=== PATIENT | female | born 1930 | race Caucasian/White ===

== ENCOUNTER 2018-06-14 08:48 | Inpatient (IN) | payer OTHER ==
[~2018-06-14] VITALS: Ht 162.6 cm; Wt 74.6 kg
--- NOTE | ~2018-06-14 | EKG ---
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 : 1930 Requested By: Kerri Eastman Order Number: [id number] MD: Charlie Barrios Measurements Intervals [place] Rate: 46 P: -39 NE: 213 QRS: -59 QRSD: 144 T: -15 QT: 596 QTc: 522 Interpretive Statements Sinus bradycardia RBBB and LAFB Left ventricular hypertrophy Compared to ECG 07/25/2017 11:57:40 Left anterior fascicular block now present Right bundle-branch block now present Left ventricular hypertrophy now present Sinus rhythm no longer present First degree AV block no longer present Left bundle-branch block no longer present Electronically Signed On 06-14-2018 16:26:31 CDT by Charlie Barrios [email or web address] <ELECTRONICALLY SIGNED> By: Charlie Barrios MD 06/14/18 1626 1015 1015 Charlie Barrios MD /EPI
[~2018-06-14 08:48] MED LIST: ACYCLOVIR 400400 MG PO; ALLEGRA ALLERGY60 MG PO; ASA5UEC PO; ASPIR 8181 M1 PO; CALCIUM 600 +1 EAC1 PO; CARBAMAZEPINE400 MG PO; CIPRO500 MG PO; DELTA D3400 UNIT PO; DITROPAN XL10 MG PO; GABAPENTIN100 MG PO; LISINOPRIL10 MG PO; MILK OF MA400 MG/5 M PO; NORVASC5 MG PO; OXYBUTYNIN 5 MG5 M2 PO; PEPCID20 MG PO; SPECTRAVITE SE1 EACH PO; TIMOLOL MA0.5 %/5 M2 OPHTHALMIC; ULTRAM 50MG TAB50 MG PO; VITAMIN D31000 UNI2 PO; VITAMIN D400 UNI1 PO; VITAMIN D400 UNI2 PO
[2018-06-14 08:49] VITALS: BP 163/52
[2018-06-14] MEDS ORDERED: TEGRETOL200 MG PO (08:58)
[2018-06-14] MEDS ORDERED: NORVASC2.5 MG PO (08:58)
[2018-06-14 09:20] LABS: ABSOLUTE NEUTROPHILS 13.3 thou/uL (1.4-8.2); BASOPHILS 0.3 % (0.0-2.0); HEMOGLOBIN 12.1 gm/dL (12.0-15.0); LYMPHOCYTES 5.3 % (24.0-44.0); MCH 29.8 pg (26.0-34.0); MCHC 33.7 g/dL (28.0-37.0); MCV 88.5 fL (80.0-100.0); MONOCYTES 7.9 % (1.0-8.0); PLATELET COUNT 184 thou/uL (150-400); POLYS 86.5 % (36.0-66.0); RBC 4.07 mil/uL (4.20-5.00); RDW 13.7 % (10.5-14.5); WBC 15.4 thou/uL (4.0-11.0)
[2018-06-14 09:29] LABS: CALCIUM 9.3 mg/dL (8.5-10.1); POTASSIUM 4.4 mmol/L (3.5-5.1)
[2018-06-14 09:34] LABS: APTT 25.9 Seconds (24.5-32.8); PROTIME 9.8 Seconds (9.3-11.4)
[2018-06-14 11:32] LABS: URINE BLOOD 3+ (Negative); URINE CLARITY CLOUDY; URINE COLOR YELLOW; URINE GLUCOSE-RANDOM* NEGATIVE (Negative); URINE KETONES TRACE (Negative); URINE NITRITE-REFLEX NEGATIVE (Negative); URINE PROTEIN (DIPSTICK) 3+ (Negative); URINE SPECIFIC GRAVITY >= 1.030 (1.005-1.035); URINE UROBILINOGEN 0.2 E.U./dl (0.2-1.0)
[2018-06-14 11:36] LABS: URINE LEUKOCYTES-REFLEX 2+ (Negative)
[2018-06-14 11:38] LABS: ICTOTEST (BILI CONFIRMATORY) Negative (Negative); URINE BILIRUBIN NEGATIVE (Negative)
[2018-06-14 11:49] LABS: CASTS None Seen /LPF (None Seen); CRYSTALS None Seen /LPF (None Seen); SQUAMOUS 0-3 Few /LPF (0-3)
[2018-06-14 11:50] LABS: BACTERIA-REFLEX >30 Many /HPF (None Seen); URINE RBC 3-10 Few /HPF (0-2); URINE WBC-REFLEX >25 Many /HPF (0-5)
[2018-06-14 13:58] VITALS: BP 122/102
[2018-06-14 14:16] VITALS: BP 163/55
[2018-06-14 15:00] VITALS: BP 171/62
[2018-06-14 19:26] VITALS: BP 170/71
[2018-06-14] MEDS ORDERED: CARBATROL200 MG PO (21:45)
[2018-06-15 05:06] VITALS: BP 155/65
[2018-06-15 08:23] VITALS: BP 181/83
[2018-06-15 08:59] LABS: HEMATOCRIT 32.5 % (37.0-47.0); MCH 29.9 pg (26.0-34.0); MCHC 33.8 g/dL (28.0-37.0); MCV 88.4 fL (80.0-100.0); RBC 3.67 mil/uL (4.20-5.00); RDW 14.2 % (10.5-14.5); WBC 11.6 thou/uL (4.0-11.0)
[2018-06-15 09:04] LABS: CALCIUM 8.5 mg/dL (8.5-10.1); CREATININE 1.9 mg/dL (0.6-1.0); POTASSIUM 4.2 mmol/L (3.5-5.1)
[2018-06-15] MEDS ORDERED: CARBAMAZEPINE100 M2 PO ×2 (09:15→09:21)
[2018-06-15] MEDS ORDERED: DIOVAN160 MG PO (09:16)
[2018-06-15] MEDS ORDERED: DITROPAN XL15 MG PO (09:21)
[2018-06-15 15:04] VITALS: BP 169/82
[2018-06-15 19:12] VITALS: BP 148/77
[2018-06-16 07:25] VITALS: BP 163/88
[2018-06-16 08:40] LABS: HEMATOCRIT 31.1 % (37.0-47.0); HEMOGLOBIN 10.5 gm/dL (12.0-15.0); MCH 30.3 pg (26.0-34.0); MCHC 33.8 g/dL (28.0-37.0); MCV 89.6 fL (80.0-100.0); RBC 3.47 mil/uL (4.20-5.00); WBC 8.6 thou/uL (4.0-11.0)
[2018-06-16 08:47] LABS: CALCIUM 8.5 mg/dL (8.5-10.1); CREATININE 1.6 mg/dL (0.6-1.0)
[2018-06-16 17:15] VITALS: BP 158/91
[2018-06-16 19:52] VITALS: BP 188/85
[2018-06-16 21:51] VITALS: BP 175/88
[2018-06-17 04:39] VITALS: BP 165/83
[2018-06-17 08:17] VITALS: BP 179/91
[2018-06-17 19:56] VITALS: BP 139/88
[2018-06-18 07:40] LABS: ABSOLUTE NEUTROPHILS 4.4 thou/uL (1.4-8.2); EOSINOPHILS 6.2 % (0.0-3.0); LYMPHOCYTES 17.1 % (24.0-44.0); MCH 29.8 pg (26.0-34.0); MCHC 33.3 g/dL (28.0-37.0); MCV 89.4 fL (80.0-100.0); MONOCYTES 9.7 % (1.0-8.0); PLATELET COUNT 211 thou/uL (150-400); RBC 3.36 mil/uL (4.20-5.00); WBC 6.6 thou/uL (4.0-11.0)
[2018-06-18 07:46] LABS: CALCIUM 8.8 mg/dL (8.5-10.1); CREATININE 1.4 mg/dL (0.6-1.0); POTASSIUM 4.4 mmol/L (3.5-5.1)
[2018-06-18 08:21] VITALS: BP 153/79
[2018-06-18 14:22] LABS: ALBUMIN 2.4 g/dL (3.4-5.0); DIRECT BILIRUBIN 0.1 mg/dL (<0.1-0.3); TOTAL BILIRUBIN 0.4 mg/dL (<0.1-1.0); TOTAL PROTEIN 5.6 g/dL (6.4-8.2)
[2018-06-18 15:03] LABS: TSH 2.389 uIU/mL (0.358-3.740)
[2018-06-18 16:13] LABS: FOLIC ACID 22.1 ng/mL (8.6-58.9)
[2018-06-18 20:05] VITALS: BP 166/82
[2018-06-19 07:31] LABS: ABSOLUTE NEUTROPHILS 5.1 thou/uL (1.4-8.2); EOSINOPHILS 5.3 % (0.0-3.0); HEMATOCRIT 29.4 % (37.0-47.0); HEMOGLOBIN 9.8 gm/dL (12.0-15.0); LYMPHOCYTES 14.7 % (24.0-44.0); MCH 29.7 pg (26.0-34.0); MCHC 33.4 g/dL (28.0-37.0); MCV 89.2 fL (80.0-100.0); MONOCYTES 9.1 % (1.0-8.0); PLATELET COUNT 211 thou/uL (150-400); POLYS 69.9 % (36.0-66.0); RDW 13.9 % (10.5-14.5); WBC 7.2 thou/uL (4.0-11.0)
[2018-06-19 07:44] LABS: CALCIUM 8.7 mg/dL (8.5-10.1); CREATININE 1.6 mg/dL (0.6-1.0); POTASSIUM 4.4 mmol/L (3.5-5.1)
[2018-06-19 07:45] VITALS: BP 183/87
[2018-06-19] MEDS ORDERED: LEVAQUIN 500 M500 M2 PO (07:53)
[2018-06-19] MEDS ORDERED: MIRALAX17 GM PO (07:54)
[2018-06-19 09:34] VITALS: BP 183/87
== END 2018-06-19 14:45 | DRG 871 ==
LOC: ER 08:48 → EROBS 12:40 → 4W 12:40 → SICU 06-16 17:01
PROVIDERS: Family Medicine; Hospitalist; Student in an Organized Health Care Education/Training Program
DX: A41.9 Sepsis, unspecified organism (principal); J18.9 Pneumonia, unspecified organism; N17.9 Acute kidney failure, unspecified; N39.0 Urinary tract infection, site not specified; J98.11 Atelectasis; I10 Essential (primary) hypertension; Z60.2 Problems related to living alone; G50.0 Trigeminal neuralgia; Z88.1 Allergy status to other antibiotic agents; Z88.2 Allergy status to sulfonamides; Z90.49 Acquired absence of other specified parts of digestive tract; Z79.82 Long term (current) use of aspirin; Z79.899 Other long term (current) drug therapy
CPT/HCPCS: 10045; 15002

== ENCOUNTER 2018-07-22 21:20 | Inpatient (IN) | payer OTHER ==
[~2018-07-22] VITALS: Ht 162.6 cm; Wt 73.4 kg
--- NOTE | ~2018-07-22 | EKG ---
[place] [address] [facility] [place] [address] ELECTROCARDIOGRAM REPORT Name: CHARLES DEL CASTILLO Room #: 201-P ADM IN M.R.#: [id number] Admission: 07/23/18 Attend Phys: Toshia Manrique Discharge: Date of : 32 Report #: [id number] THIS REPORT FOR: //name// 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 : 1930 Requested By: Simon Oshea Order Number: [id number] MD: Gerard Reilly Measurements Intervals [place] Rate: 88 P: 4 CA: 215 QRS: -63 QRSD: 145 T: 38 QT: 410 QTc: 496 Interpretive Statements Sinus rhythm Borderline prolonged CA interval RBBB and LAFB Left ventricular hypertrophy Baseline wander in lead(s) V2 Compared to ECG 06/14/2018 10:15:04 Sinus bradycardia no longer present Electronically Signed On 07-23-2018 10:23:06 O AND M SUPERVISOR by Gerard Reilly [email or web address] <ELECTRONICALLY SIGNED> By: Gerard Reilly MD 07/23/18 1023 19 19 Gerard Reilly MD /TENZIN
--- NOTE | ~2018-07-22 | 2DMMODE ---
[facility] [address] [place] [address] 2 D/M-MODE ECHOCARDIOGRAM Name: ABUNDIOCHARLES ANNA Room #: 201-P ADM IN M.R.#: [id number] Admission: 07/23/18 Attend Phys: Bro Mullins, Discharge: Date of : 32 Date of Service: 07/24/18 1021 Report #: [id number] THIS REPORT FOR: //name// APPROVED REPORT Study performed: 07/24/2018 08:21:36 EXAM: Comprehensive 2D, Doppler, and color-flow Echocardiogram Patient Location: Echo lab Room #: 201 Status: routine BSA: 1.76 HR: 96 bpm BP: 196/112 mmHg Rhythm: NSR Other Information Study Quality: Good Indications Short of breath, elevated troponin. LV function, CHF. Hx: HTN 2D Dimensions RVDd: 38.69 mm IVSd: 14.12 (7-11mm) LVOT Diam: 20.79 (18-24mm) LVDd: 51.36 mm PWd: 12.02 (7-11mm) LVDs: 41.38 (25-40mm) Aortic Root: 32.20 mm Volumes Left Atrial Volume (Systole) Single Plane 4CH: 65.42 mL Single Plane 2CH: 81.99 mL LA ESV Index: 46.00 mL/m2 Aortic Valve AoV Peak Milton.: 1.43 m/s AO Peak Gr.: 8.22 mmHg LVOT Max P.88 mmHg LVOT Max V: 0.98 m/s DEMETRICE Vmax: 2.33 cm2 Mitral Valve E/A Ratio: 2.0 MV Decel. Time: 105.73 ms MV E Max Milton.: 1.12 m/s [facility] [place] [address] [place] [address] 2 D/M-MODE ECHOCARDIOGRAM Name: CHARLES DEL CASTILLO Room #: 201-P [facility] ..#: [id number] Admission: 07/23/18 Attend Phys: Bro Mullins, Discharge: Date of : 32 Date of Service: 07/24/18 1021 Report #: [id number] MV A Milton.: 0.56 m/s MV PHT: 30.66 ms IVRT: 66.90 ms Pulmonary Valve PV Peak Milton.: 0.88 m/s PV Peak Gr.: 3.07 mmHg Pulmonary Vein P Vein S: 0.48 m/s P Vein D: 0.55 m/s P Vein S/D Ratio: 0.87 Tricuspid Valve TR Peak Milton.: 2.95 m/s RAP Estimate: 5.00 mmHg TR Peak Gr.: 34.86 mmHg PA Pressure: 40.00 mmHg Left Ventricle The left ventricle is normal size. Mild global hypokinesis with more pronounced hypokinesis of the inferior segment. Mild concentric left ventricular hypertrophy. Left ventricular systolic function is mild to moderately decreased. LVEF is 40-45%. Right Ventricle The right ventricle is normal size. Right ventricle is mildly hypokinetic. Atria Left atrium is moderately dilated. The right atrium size is normal. Aortic Valve The aortic valve is normal in structure. Trace aortic regurgitation. There is no aortic valvular stenosis. Mitral Valve Mitral valve leaflets are mildly thickened. Moderate mitral regurgitation. Tricuspid Valve The tricuspid valve is normal in structure. Mild tricuspid regurgitation. Estimated PAP is 40mmHg. Pulmonic Valve The pulmonary valve is normal in structure. Trace pulmonic regurgitation. [facility] [address] [place] [address] 2 D/M-MODE ECHOCARDIOGRAM Name: CHARLES DEL CASTILLO JOSUE Room #: 201-P [facility] IN M.R.#: [id number] Admission: 07/23/18 Attend Phys: Bro Mullins, Discharge: Date of : 32 Date of Service: 07/24/18 1021 Report #: [id number] Great Vessels The aortic root is normal in size. Ascending aorta is not well visualized. IVC is normal in size and collapses >50% with inspiration. Pericardium There is no pericardial effusion. Left and right pleural effusions noted. <Conclusion> The left ventricle is normal size. Mild concentric left ventricular hypertrophy. Left ventricular systolic function is mild to moderately decreased. Mild global hypokinesis with more pronounced hypokinesis of the inferior segment. Right ventricle is mildly hypokinetic. Left atrium is moderately dilated. Trace aortic regurgitation. Moderate mitral regurgitation. Mild tricuspid regurgitation. Estimated PAP is 40mmHg. There is no pericardial effusion. Left and right pleural effusions noted. <ELECTRONICALLY SIGNED> By: Gerard Reilly MD 07/24/18 1021 1021 1021 Gerrad Reilly MD /INF
--- NOTE | ~2018-07-22 | HC ---
[facility] [place] [address] [place] [address] CONSULTATION Name: ABUNDIOCHARLES JOSUE Room #: 201-P ADM IN M.R.#: [id number] Admission: 07/23/18 Attend Phys: Toshia Manrique Discharge: Date of : 32 Report #: [id number] THIS REPORT FOR: //name// CC: Toshia Crabtree Harpreet DATE OF SERVICE: 07/23/2018 INDICATION: Dyspnea. HISTORY OF PRESENT ILLNESS: This is an 88-year-old female who presents with weakness, cough and dyspnea. She had been in rehab for several weeks and discharged towards the end of May. She had been in the hospital for a UTI and pneumonia. She lives at home by herself. She reports feeling generalized weakness and nauseous yesterday. Last evening, she was unable to get out of bed, had a fall to the floor. She reports increasing cough and dyspnea when she lies down. There is no history of chest pains, fever, chills or diarrhea. PAST MEDICAL HISTORY: History of hypertension, FMD, weakness and syncope. Recent episode of pneumonia. ALLERGIES: INCLUDE AMOXICILLIN AND SULFA. MEDICATIONS: Include gabapentin at night, aspirin once a day, carbamazepine 40 mg daily, Diovan 160 mg daily, amlodipine 10 mg daily and famotidine. SOCIAL HISTORY: Negative for tobacco use. FAMILY HISTORY: Negative for premature CAD. REVIEW OF SYSTEMS: A full 10-point review of systems performed. Only the pertinent positives and negatives are described in the HPI. PHYSICAL EXAMINATION: VITAL SIGNS: Blood pressure 150/90, heart rate is 64 beats per minute. GENERAL APPEARANCE: An elderly appearing female, in no acute distress. HEENT: Normocephalic, atraumatic. Oral mucosa moist. NECK: Supple. LUNGS: Diminished breath sounds at the bases. CARDIAC: Regular rate and rhythm, S1, S2 positive. ABDOMEN: Soft, nontender. EXTREMITIES: No cyanosis. Positive edema. ECG reveals sinus rhythm, right bundle branch block, left anterior hemiblock, nonspecific ST segment abnormality. [facility] [address] [place] [address] CONSULTATION Name: CHARLES DEL CASTILLO Room #: [address] [place] [address] IN .R.#: [id number] Admission: 07/23/18 Attend Phys: Toshia Manrique Discharge: Date of : 32 Report #: [id number] LABORATORY VALUES: Peak troponin 0.17. White count 11.6, hemoglobin is 11.3. Creatinine is 1.6. ProBNP is 47,101. ASSESSMENT AND PLAN: 1. Shortness of breath/cough, may be suggestive for congestive heart failure. Chest x-ray reveals bilateral infiltrates. We will proceed with gentle diuresis at this time. She is not in any overt heart failure. Will need an echo to evaluate the LV systolic function. 2. Troponin elevation, in the indeterminate range. She offers no complaints of angina. The ECG is abnormal and the plan is to proceed with noninvasive stress testing. 3. Hypertension, continue with amlodipine. 4. Weakness/general debility, appears to be stable at this time. Will need physical therapy. <ELECTRONICALLY SIGNED> By: Gerard Reilly MD 07/23/18 1518 1048 1325 Gerard Reilly MD /nt
[~2018-07-22 21:20] MED LIST changes: +CARBAMAZEPINE100 M2 PO; +CARBATROL200 MG PO; +DIOVAN160 MG PO; +DITROPAN XL15 MG PO; +LEVAQUIN 500 M500 M2 PO; +MIRALAX17 GM PO; +NORVASC2.5 MG PO; +TEGRETOL200 MG PO
[2018-07-22 21:25] VITALS: BP 184/101
[2018-07-22 22:33] LABS: ABSOLUTE NEUTROPHILS 10.5 thou/uL (1.4-8.2); BASOPHILS 0.6 % (0.0-2.0); EOSINOPHILS 0.1 % (0.0-3.0); HEMATOCRIT 34.4 % (37.0-47.0); HEMOGLOBIN 11.3 gm/dL (12.0-15.0); LYMPHOCYTES 4.3 % (24.0-44.0); MCH 29.2 pg (26.0-34.0); MCV 88.5 fL (80.0-100.0); MONOCYTES 4.5 % (1.0-8.0); PLATELET COUNT 180 thou/uL (150-400); POLYS 90.5 % (36.0-66.0); RBC 3.89 mil/uL (4.20-5.00); RDW 14.6 % (10.5-14.5); WBC 11.6 thou/uL (4.0-11.0)
[2018-07-22 22:36] LABS: CALCIUM 8.9 mg/dL (8.5-10.1); CREATININE 1.6 mg/dL (0.6-1.0)
[2018-07-22 22:45] LABS: TROPONIN-I 0.15 ng/mL (<0.06)
[2018-07-22] MEDS ORDERED: NORVASC10 MG PO (22:46)
[2018-07-22] MEDS ORDERED: PEPCID20 MG PO (22:48)
[2018-07-23] VITALS (8 sets, daily range): BP systolic 132–175; BP diastolic 67–98
[2018-07-23] MEDS ORDERED: LASIX 40 MG TAB40 M2 PO (00:17)
[2018-07-23 04:02] LABS: CHOLESTEROL 182 mg/dL (<200); HDL CHOLESTEROL 91 mg/dL (>40); LDL CHOLESTEROL 79 mg/dL (<100); TRIGLYCERIDE 62 mg/dL (<150); VLDL 12 mg/dL (<40)
[2018-07-23 04:08] LABS: SERUM ASSESSMENT Slight Lipemia
[2018-07-24 03:25] VITALS: BP 175/99
[2018-07-24 03:39] VITALS: BP 150/88
[2018-07-24 04:06] LABS: URINE BILIRUBIN NEGATIVE (Negative); URINE BLOOD 2+ (Negative); URINE CLARITY CLEAR; URINE COLOR YELLOW; URINE GLUCOSE-RANDOM* NEGATIVE (Negative); URINE KETONES NEGATIVE (Negative); URINE NITRITE-REFLEX NEGATIVE (Negative); URINE PROTEIN (DIPSTICK) 1+ (Negative); URINE UROBILINOGEN 0.2 E.U./dl (0.2-1.0)
[2018-07-24 04:07] LABS: URINE LEUKOCYTES-REFLEX TRACE (Negative)
[2018-07-24 04:14] LABS: HEMATOCRIT 33.2 % (37.0-47.0); HEMOGLOBIN 10.9 gm/dL (12.0-15.0); MCH 29.1 pg (26.0-34.0); MCHC 32.9 g/dL (28.0-37.0); MCV 88.6 fL (80.0-100.0); RBC 3.75 mil/uL (4.20-5.00); RDW 14.8 % (10.5-14.5)
[2018-07-24 04:27] LABS: BACTERIA-REFLEX 1-9 Few /HPF (None Seen); CASTS None Seen /LPF (None Seen); CRYSTALS None Seen /LPF (None Seen); MUCUS None Seen strn/LPF (None Seen); SQUAMOUS None Seen /LPF (0-3); URINE RBC 0-2 Rare /HPF (0-2); URINE WBC-REFLEX 0-5 Rare /HPF (0-5)
[2018-07-24 04:28] LABS: TRANSITIONAL EPITHEL CELL 0-3 Few /LPF (None Seen)
[2018-07-24 04:30] LABS: CALCIUM 8.9 mg/dL (8.5-10.1); MAGNESIUM 2.3 mg/dL (1.8-2.4); POTASSIUM 3.9 mmol/L (3.5-5.1)
[2018-07-24 07:32] VITALS: BP 196/112
[2018-07-24 11:34] VITALS: BP 150/79
[2018-07-24 15:20] VITALS: BP 150/66
[2018-07-24 19:36] VITALS: BP 133/75
[2018-07-25 04:03] LABS: HEMATOCRIT 29.4 % (37.0-47.0); MCH 30.3 pg (26.0-34.0); MCV 89.2 fL (80.0-100.0); RBC 3.3 mil/uL (4.20-5.00); RDW 15.1 % (10.5-14.5); WBC 6.5 thou/uL (4.0-11.0)
[2018-07-25 04:04] LABS: CALCIUM 8.5 mg/dL (8.5-10.1); CREATININE 2.2 mg/dL (0.6-1.0)
[2018-07-25 04:24] VITALS: BP 136/82
[2018-07-25 08:52] VITALS: BP 158/100
[2018-07-25 11:05] VITALS: BP 140/79
[2018-07-25] MEDS ORDERED: COREG6.25 MG PO (14:38)
[2018-07-25 15:10] VITALS: BP 125/71
[2018-07-25 19:09] VITALS: BP 118/56
[2018-07-26 05:40] VITALS: BP 129/73
[2018-07-26 05:52] VITALS: BP 152/85
[2018-07-26 07:29] VITALS: BP 173/87
[2018-07-26 07:46] VITALS: BP 173/87
== END 2018-07-26 10:27 | DRG 682 ==
LOC: ER 21:20 → 2N 07-23 00:41 → EROBS 07-23 00:41 → 2N 07-23 01:36
PROVIDERS: Emergency Medicine; Internal Medicine; Nurse Practitioner Acute Care
DX: N17.9 Acute kidney failure, unspecified (principal); I50.33 Acute on chronic diastolic (congestive) heart failure; I13.0 Hypertensive heart and chronic kidney disease with heart failure and stage 1 through stage 4 chronic kidney disease, or unspecified chronic kidney disease; I42.9 Cardiomyopathy, unspecified; M19.90 Unspecified osteoarthritis, unspecified site; W01.0XXA Fall on same level from slipping, tripping and stumbling without subsequent striking against object, initial encounter; N18.3 Chronic kidney disease, stage 3 (moderate); M79.7 Fibromyalgia; Z79.82 Long term (current) use of aspirin; Z79.899 Other long term (current) drug therapy; Z88.2 Allergy status to sulfonamides; Z88.0 Allergy status to penicillin; Z90.49 Acquired absence of other specified parts of digestive tract; Y93.89 Activity, other specified; Y92.89 Other specified places as the place of occurrence of the external cause; Y99.8 Other external cause status
CPT/HCPCS: 10081

== ENCOUNTER 2018-07-25 16:14 | Inpatient (IN) | payer OTHER ==
[~2018-07-25] VITALS: Ht 162.6 cm; Wt 68.5 kg
--- NOTE | ~2018-07-25 | PLAN ---
[facility] [place] [address] [place] [address] REHAB UNIT PLAN OF CARE Name: CHARLES DEL CASTILLO Room #: 505-P ADM IN M.R.#: [id number] Admission: 07/26/18 Attend Phys: Jonathan Cordova MD Discharge: Date of : 32 Report #: [id number] THIS REPORT FOR: //name// CC: Jonathan Mullins DATE OF SERVICE: 07/28/2018 The patient is seen back today in followup. She is in no distress. Temperature 98.3, pulse 62, respirations 18, blood pressure 113/57. She is alert. No focal calf swelling. She is on 2 liters nasal prong O2. Transfers are mod assist. Bed mobility is max assist, lower body dressing is dependent. She has moderate comprehensive deficits. ASSESSMENT: 1. Acute exacerbation of diastolic congestive heart failure. 2. Medical complexity with generalized debilitation. 3. Nonischemic cardiomyopathy. 4. Troponin elevation of indeterminate range. 5. Acute renal insufficiency with exacerbation of diuresis. 6. Hypertension. 7. Possible pneumonia, resolved. 8. Degenerative arthritis. 9. Recent fall at home prior to admission. PLAN: The overall plan of care is based on the preadmission screen, post-admission physician evaluation and information garnered from therapy assessments. 1. Estimated length of stay is going to be probably at least 10 days pending progress. Possibly 2 weeks. We will need to see how she does. 2. Medical prognosis is reasonably good. 3. Anticipated interventions includes the interdisciplinary acute inpatient rehabilitation program with PT, OT, speech rehab nursing assisting regarding medication management, skin care prophylaxis, bowel and bladder issues and nursing education. Case management is involved as well as the interdisciplinary acute inpatient rehabilitation team. 4. Anticipated functional outcomes would be for the patient to become modified independent with transfers, mobility, ADLs as well as overall cognition, so that she can return back to the home setting. She premorbidly utilized a single point cane, although will need to see how she does here in rehabilitation. 5. Discharge destination would be back to her own home. Her children live out of town. 6. Expected therapy by discipline includes PT, OT and speech 1 hour per day [address] [address] REHAB UNIT PLAN OF CARE Name: CHARLES DEL CASTILLO Room #: 505-P ADM IN ..#: [id number] Admission: 07/26/18 Attend Phys: Jonathan Cordova MD Discharge: Date of : 32 Report #: [id number] each five days a week throughout the duration of the acute inpatient rehabilitation stay. By: 0821 1122 Jonathan Cordova MD /ALONDRA
--- NOTE | ~2018-07-25 | EKG ---
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 : 1930 Requested By: Bro Mullins Order Number: [id number] MD: Bassem Negro Measurements Intervals [place] Rate: 82 P: -8 MA: 228 QRS: -56 QRSD: 157 T: 58 QT: 405 QTc: 473 Interpretive Statements Sinus rhythm Prolonged MA interval Left anterior hemiblock Right bundle-branch block Compared to ECG 07/22/2018 22:20:03 no significant change was found Electronically Signed On 07-31-2018 8:36:22 MANAGER STRATEGY by Bassem Negro [email or web address] <ELECTRONICALLY SIGNED> By: Bassem Negro MD, [facility] 07/31/18 0836 0736 0736 Bassem Negro MD, [facility] /EPI
--- NOTE | ~2018-07-25 | H ---
[facility] [place] [address] [place] [address] HISTORY AND PHYSICAL Name: CHARLES DEL CASTILLO Room #: 505-P [facility] IN M.R.#: [id number] Admission: 07/26/18 Attend Phys: Jonathan Cordova MD Discharge: 07/31/18 Date of : 32 Report #: [id number] THIS REPORT FOR: //name// CC: Jonathan Cookkalyn Mullins DATE OF SERVICE: 07/26/2018 HISTORY AND PHYSICAL/POSTADMISSION PHYSICIAN EVALUATION HISTORY OF PRESENT ILLNESS: The patient is an 88-year-old white female who was originally admitted to [facility] on 07/23/2018 after sliding out of her bed, feeling overall sick and weak. She was diagnosed with an acute exacerbation of diastolic congestive heart failure and possible pneumonia. She was initially given IV antibiotics, which were subsequently stopped as well as IV diuretics. Lasix was placed on hold due to worsening renal function. Cardiology was involved and the patient did undergo a cardiac stress test. She is noted to have cardiomyopathy, nonischemic with the nuclear stress test, nonischemic. She did have a troponin elevation in indeterminate range. She is being monitored regarding her acute renal insufficiency. She does have hypertension and her Coreg was increased. She was noted to have the acute exacerbation of diastolic congestive heart failure and has medical complexity with generalized debilitation and has now been admitted for acute in-hospital inpatient rehabilitation. PAST MEDICAL HISTORY: Includes hypertension, fibromyalgia, varicose vein surgery, bilateral lower extremities, appendectomy, and chronic kidney disease stage 3. MEDICATIONS: Please see the full medication listing. This includes vitamins, herbals, and supplements. ALLERGIES: AMOXICILLIN AND SULFA. HABITS: No history of alcohol or drug abuse, nonsmoker. SOCIAL HISTORY: Lives alone, house single story basement and laundry one flight of steps with a single handrail, utilized a single point cane, has children that are out of town. There is currently a son visiting from [place], [place]. REVIEW OF SYSTEMS: Did not offer any current complaints of chest pain, shortness of breath or abdominal discomfort. No focal complaints of extremity pain. Does complain of generalized weakness. PHYSICAL EXAMINATION: GENERAL: An 88-year-old white female in no obvious distress. [facility] [address] [place] [address] HISTORY AND PHYSICAL Name: CHARLES DEL CASTILLO Room #: 505-P [facility] IN .R.#: [id number] Admission: 07/26/18 Attend Phys: Jonathan Cordova MD Discharge: 07/31/18 Date of : 32 Report #: [id number] VITAL SIGNS: Last recorded temperature 98.9, pulse 71, respirations 18, blood pressure 137/76. The patient is alert. She is pleasant. HEENT: Appeared to be benign. NEUROLOGIC: Cranial nerves are grossly intact. Tends to defer lot of answers to her son. She is on nasal prong O2, currently on 2 liters. Some delay in her responses, but appears appropriate. She was somewhat tired and tended to drift off to sleep. Facies were symmetric. CHEST: Some decreased breath sounds diffusely. CARDIOVASCULAR: Sounded regular rate and rhythm. ABDOMEN: Bowel sounds positive, nontender. GENITOURINARY AND RECTAL: Deferred. EXTREMITIES: She has functional range of motion of both upper extremities. Strength is grade 3+ to 4-/5. DTRs are trace to 1. Lower extremities, no focal calf swelling, functional range of motion, strength is grade 3+ to 4-/5. DTRs are trace to 1. Tone appeared to be intact. Functionally, she is needing assistance with transfers at more of a mod assist and short distance ambulation mod assist. ASSESSMENT: An 88-year-old white female with the following problem list: 1. Acute exacerbation of diastolic congestive heart failure. 2. Medical complexity with generalized debilitation. 3. Nonischemic cardiomyopathy. 4. Troponin elevation in an indeterminate range. 5. Acute renal insufficiency with exacerbation with diuresis. 6. Hypertension. 7. Possible pneumonia, resolved. 8. Degenerative arthritis. 9. Recent fall at home prior to admission. PLAN: The patient is admitted for acute in-hospital inpatient rehabilitation. From a post-admission physician evaluation, there are no relevant changes since the preadmission screening. Please see the above review of prior and current medical and functional conditions and comorbidities. Please see the patient's previous and current functional status. As far as risk of complications, the patient has multiple medical comorbidities as noted above. The initial plan of care involves the interdisciplinary acute inpatient rehabilitation program with the goal of maximizing the patient's functional independence, so that she can hopefully return back to her prior living situation. Prognosis is reasonably good with estimated length of stay probably 10 days to 2 weeks pending progress. Potential barriers would include her multiple medical comorbidities and decreased functional status. The patient meets diagnostic criteria for an acute in-hospital inpatient rehabilitation stay. She meets the medical necessity criteria and we will have [facility] [address] [place] [address] HISTORY AND PHYSICAL Name: CHARLES DEL CASTILLO Room #: 505-P DIS IN M.R.#: [id number] Admission: 07/26/18 Attend Phys: Jonathan Cordova MD Discharge: 07/31/18 Date of : 32 Report #: [id number] the [employer] consultant physicians continue to follow up. She does have the tolerance for therapies and has appropriate discharge goals back to the home setting. <ELECTRONICALLY SIGNED> By: Jonathan Cordova MD 08/01/18 1121 1202 1230 Jonathan Cordova MD /nt
--- NOTE | ~2018-07-25 | D ---
[facility] [place] [address] [place] [address] DISCHARGE SUMMARY Name: CHARLES DEL CASTILLO Room #: 505-P [facility] IN M.R.#: [id number] Admission: 07/26/18 Attend Phys: Jonathan Cordova MD Discharge: 07/31/18 Date of : 32 Report #: [id number] THIS REPORT FOR: //name// CC: Jonathan Cordova Bro Mullins DATE OF SERVICE: 07/31/2018 HISTORY: This is an 88-year-old female originally admitted to the inpatient rehabilitation pham after being diagnosed with an acute exacerbation of diastolic congestive heart failure and possibly pneumonia. She was initially given IV antibiotics. They were subsequently stopped as well as IV diuretics. Lasix was put on hold due to worsening renal function. Cardiology was involved. She was noted to have a cardiomyopathy, nonischemic. She did have a troponin elevation in the indeterminate range. She was being monitored regarding her acute renal insufficiency and was noted to have hypertension and her Coreg was increased. She was noted to have medical complex with generalized debilitation and was admitted for acute in-hospital inpatient rehabilitation. Please see the full admission note dictation from 07/26/2018. HOSPITAL COURSE: The patient was involved in the inpatient rehabilitation program. She was monitored regarding her medical issues. She was progressing in therapies. She was mod assist on 07/29/2018 for basic transfers. She did miss some therapies on Tuesday07/29/2018 secondary to somnolence. She did better on 07/30/2018 and was min assist with transfers. Gait was 25 feet front-wheeled walker. In occupational therapy, lower body dressing was dependent, upper body dressing was dependent. She was noted to have moderate comprehensive deficits. Earlier this morning, on 07/31/2018, she had complaints of not feeling well, O2 sat was in the 80s and 2 liters. ABGs withdrawn. These were noted to be critical. PO2 47.7, O2 sat 83.7. She is being transferred down to the [facility] CCU for more close monitoring. DISCHARGE DIAGNOSES: 1. Acute exacerbation of diastolic congestive heart failure. 2. Medical complexity with generalized debilitation. 3. Nonischemic cardiomyopathy. 4. Troponin elevation in the indeterminate range. 5. Acute renal insufficiency with exacerbation of diuresis. 6. Hypertension. 7. Possible pneumonia. 8. Degenerative arthritis. PLAN: The patient is being discharged off the acute inpatient rehab pham and will be returning back to the acute hospital to CCU for further medical [address] [address] DISCHARGE SUMMARY Name: CHARLES DEL CASTILLO Room #: 505-P [facility] IN M.R.#: [id number] Admission: 07/26/18 Attend Phys: Jonathan Cordova MD Discharge: 07/31/18 Date of : 32 Report #: [id number] management. I will defer medications, diet, activity level, etc., all as per the accepting service. By: 0823 0833 Jonathan Cordova MD /cory
--- NOTE | ~2018-07-25 | HC ---
[facility] [address] [place] [address] CONSULTATION Name: CHARLES DEL CASTILLO Room #: 505-P ADM IN M.R.#: [id number] Admission: 07/26/18 Attend Phys: Jonathan Cordova MD Discharge: Date of : 34 Report #: [id number] THIS REPORT FOR: //name// CC: Jonathan Mullins DATE OF SERVICE: 07/30/2018 NEUROBEHAVIORAL STATUS EXAM: ATTENDING PHYSICIAN: Jonathan Cordova MD. PEACH GROWER: Bro Gutierrez, PhD. CLINICAL PRESENTATION: The patient is an 88-year-old female admitted to the rehabilitation unit at [facility] for comprehensive inpatient rehabilitation program to improve functional mobility, activities of daily living and self-care and mental status secondary to deficits from an acute exacerbation of diastolic congestive heart failure, medical complexity and generalized debility, non-ischemic cardiomyopathy, troponin elevation in an intermediate range, acute renal insufficiency with exacerbation with diuresis, hypertension, possible pneumonia, degenerative arthritis and a recent fall. A complete description of her medical condition and history can be found in her medical record. Neuropsychological consultation was requested to provide assistance in the assessment of cognitive and emotional status and to provide recommendations and services. Prior to this most recent admission, she was living independently in her own home. She has had assistance from a peer to help her with nutrition and driving. The patient has not driven for 6 years. She has been unable to cook. Her daughter describes her as having had 3 falls. An initial fall about 4-5 years ago in which she was lying on the floor for approximately 24 hours. A fall in May of this year, she was about 7-12 hours before help was required. Most recently, she had a fall that led to this current hospitalization, which she used her Life Alert to contact the daughter for requiring additional help. There has been a continual deterioration in her functioning. The patient is a high school graduate. She is . Her ex- is . She has three children. 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 She is originally from [place], but has been in the [place] for about 60 years. Her children are all living out of town. TECHNIQUES UTILIZED: Clinical interview, review of medical records, staff consultation and behavioral observation, mini mental status exam [address] [address] CONSULTATION Name: CHARLES DEL CASTILLO Room #: 505-P [facility] IN M.R.#: [id number] Admission: 07/26/18 Attend Phys: Jonathan Cordova MD Discharge: Date of : 32 Report #: [id number] version and clock drawing. Family interview - daughter. EXAMINATION FINDINGS: The patient was alert and cooperative with the assessment. I had attempted to interview her on several occasions; however, she was too drowsy and unresponsive to participate in an assessment. She was more alert and responsive allowing for the completion of the evaluation. She does not present with auditory or visual hallucinations. There is no evidence of thought disorder. She describes her symptoms as including difficulty with sleep and appetite. She does not report difficulty with her memory, word finding or depression. The patient does acknowledge subjective feelings of anxiety. She has decreased insight into the severity of her cognitive deficits. There is no evidence of aphasia. However, reduced verbal fluency is noted. Her performance on the MMSE 2 brief version is extremely low with a raw score of 6/16. She was 3/3 for initial registration, 0/5 for orientation to time, 3/[address] and 0/3 for immediate recall of 3 items after a brief time delay and distraction. She also presents with perseveration. Perseveration was noted in several responses during orientation questions. The year she thought was 1987. Her performance on the MMSE 2 standard version was extremely low with a raw score of 12/30. She was 0/5 for serial sevens, 2/2 for naming, 1/1 for repetition, 3/3 for auditory comprehension. She was able to read and follow a single command. The patient was unable to copy a simple geometric design. She also could not draw a clock or set the hands at a designated time. She was unable to indicate the numbers of the clock. The patient was unable to write a sentence. Perseveration and motor behavior was noted in that she just kept drawing the same design even when asked to write a sentence. Her daughter indicates the patient is showing severe deterioration in functioning. She is uncertain as to the reason for her deterioration and felt like up until the last several months, she was able to live independently. The patient is presenting with delirium. An underlying neurocognitive disorder, most likely due to an Alzheimer type dementia is suggested. She is also taking medication with sedating features that can affect cognitive function. DIAGNOSTIC IMPRESSION: 1. Delirium, hypoactive, acute. 2. Major neurocognitive disorder (dementia), likely multifactorial with both medical etiology and possibly Alzheimer type features, without behavior disorder -- extent to be determined, likely at least in the moderate range. RECOMMENDATIONS: Reduce as medically appropriate medication with sedating [facility] [address] [place] [address] CONSULTATION Name: CHARLES DEL CASTILLO Room #: 505-P ADM IN M.R.#: [id number] Admission: 07/26/18 Attend Phys: Jonathan Cordova MD Discharge: Date of : 32 Report #: [id number] features example, carbamazepine and gabapentin. Following discharge, she will benefit from a workup for dementia including Neurology consultation and more thorough neuropsychological testing. The patient is not able to live independently. She will require assistance in the management of medication, nutrition and finances. A 24-hour care will be necessary for her to maintain safety. Thank you very much for allowing me to provide the consultation on this patient. By: [id number] Bro Gutierrez, PhD /nt
[~2018-07-25 16:14] MED LIST changes: +COREG6.25 MG PO; +LASIX 40 MG TAB40 M2 PO; +NORVASC10 MG PO
[2018-07-26 10:40] VITALS: BP 137/76
[2018-07-26 19:10] VITALS: BP 98/42
[2018-07-27 04:42] LABS: HEMATOCRIT 29.4 % (37.0-47.0); HEMOGLOBIN 9.9 gm/dL (12.0-15.0); MCH 29.9 pg (26.0-34.0); MCHC 33.6 g/dL (28.0-37.0); RBC 3.31 mil/uL (4.20-5.00); RDW 14.8 % (10.5-14.5); WBC 6.8 thou/uL (4.0-11.0)
[2018-07-27 04:44] LABS: CALCIUM 8.7 mg/dL (8.5-10.1); CREATININE 2.4 mg/dL (0.6-1.0); POTASSIUM 4.3 mmol/L (3.5-5.1)
[2018-07-27 07:52] VITALS: BP 147/74
[2018-07-27 19:28] VITALS: BP 113/57
[2018-07-28 06:40] LABS: CALCIUM 8.7 mg/dL (8.5-10.1); CREATININE 2.1 mg/dL (0.6-1.0); POTASSIUM 4.4 mmol/L (3.5-5.1)
[2018-07-28 09:00] VITALS: BP 111/50
[2018-07-28 19:24] VITALS: BP 131/57
[2018-07-29 07:30] VITALS: BP 145/82
[2018-07-29 09:41] LABS: HEMATOCRIT 29.3 % (37.0-47.0); HEMOGLOBIN 9.9 gm/dL (12.0-15.0); MCH 29.7 pg (26.0-34.0); MCHC 33.7 g/dL (28.0-37.0); RBC 3.32 mil/uL (4.20-5.00); RDW 14.3 % (10.5-14.5); WBC 8.7 thou/uL (4.0-11.0)
[2018-07-29 09:44] LABS: CALCIUM 9.1 mg/dL (8.5-10.1); CREATININE 2.3 mg/dL (0.6-1.0); POTASSIUM 4.5 mmol/L (3.5-5.1)
[2018-07-29 12:24] VITALS: BP 116/53
[2018-07-29 16:54] VITALS: BP 113/60
[2018-07-29 17:00] LABS: BE(vivo) 3.9 mmol/L (-2 to +3); HCO3 27.9 mmol/L (22.0-26.0); PO2 105.6 mmHg (80.0-100.0); pH 7.462 (7.360-7.450); sO2 98.1 % (92.0-98.0)
[2018-07-29 19:13] VITALS: BP 110/57
[2018-07-30 01:09] VITALS: BP 116/54
[2018-07-30 01:31] LABS: URINE BILIRUBIN NEGATIVE (Negative); URINE BLOOD 1+ (Negative); URINE CLARITY CLEAR; URINE COLOR YELLOW; URINE GLUCOSE-RANDOM* NEGATIVE (Negative); URINE KETONES NEGATIVE (Negative); URINE LEUKOCYTES-REFLEX NEGATIVE (Negative); URINE NITRITE-REFLEX NEGATIVE (Negative); URINE PROTEIN (DIPSTICK) NEGATIVE (Negative); URINE SPECIFIC GRAVITY 1.015 (1.005-1.035); URINE UROBILINOGEN 0.2 E.U./dl (0.2-1.0)
[2018-07-30 01:51] LABS: HYALINE CASTS >10 Many /LPF (None Seen); URINE RBC 3-10 Few /HPF (0-2)
[2018-07-30 01:52] LABS: BACTERIA-REFLEX 1-9 Few /HPF (None Seen); CRYSTALS None Seen /LPF (None Seen); SQUAMOUS 0-3 Few /LPF (0-3); URINE WBC-REFLEX None Seen /HPF (0-5)
[2018-07-30 03:51] LABS: HEMATOCRIT 27.6 % (37.0-47.0); HEMOGLOBIN 9.2 gm/dL (12.0-15.0); MCH 29.2 pg (26.0-34.0); MCHC 33.2 g/dL (28.0-37.0); MCV 87.8 fL (80.0-100.0); RBC 3.15 mil/uL (4.20-5.00); RDW 14.9 % (10.5-14.5); WBC 6.8 thou/uL (4.0-11.0)
[2018-07-30 04:00] LABS: CALCIUM 8.5 mg/dL (8.5-10.1); CREATININE 2.4 mg/dL (0.6-1.0); POTASSIUM 4.5 mmol/L (3.5-5.1)
[2018-07-30 05:00] VITALS: BP 115/62
[2018-07-30 08:30] VITALS: BP 153/72
[2018-07-30 19:55] VITALS: BP 150/78
[2018-07-31 06:30] VITALS: BP 194/106
[2018-07-31 06:54] LABS: BE(vivo) 1.5 mmol/L (-2 to +3); HCO3 24.8 mmol/L (22.0-26.0); PCO2 34.6 mmHg (35.0-45.0); PO2 47.7 mmHg (80.0-100.0); pH 7.474 (7.360-7.450); sO2 86.5 % (92.0-98.0)
[2018-07-31 06:54] LABS: ABSOLUTE NEUTROPHILS 7.7 thou/uL (1.4-8.2); BASOPHILS 0.5 % (0.0-2.0); EOSINOPHILS 2.1 % (0.0-3.0); HEMATOCRIT 32.3 % (37.0-47.0); HEMOGLOBIN 10.8 gm/dL (12.0-15.0); LYMPHOCYTES 9.1 % (24.0-44.0); MCH 29.4 pg (26.0-34.0); MCHC 33.5 g/dL (28.0-37.0); MCV 87.8 fL (80.0-100.0); MONOCYTES 4.5 % (1.0-8.0); PLATELET COUNT 171 thou/uL (150-400); POLYS 83.8 % (36.0-66.0); RBC 3.67 mil/uL (4.20-5.00); RDW 14.4 % (10.5-14.5); WBC 9.2 thou/uL (4.0-11.0)
[2018-07-31 06:55] LABS: ALBUMIN 2.8 g/dL (3.4-5.0); CALCIUM 9.5 mg/dL (8.5-10.1); CREATININE 2.1 mg/dL (0.6-1.0); PHOSPHORUS 3.1 mg/dL (2.5-4.9); POTASSIUM 4.7 mmol/L (3.5-5.1)
[2018-07-31 07:28] VITALS: BP 199/100
[2018-07-31] MEDS ORDERED: CARVEDILOL25 MG PO (08:08)
[2018-07-31] MEDS ORDERED: ALBUTEROL2.5 MG/0.5 INH (08:08)
[2018-07-31] MEDS ORDERED: TYLENOL EXTRA500 MG PO (08:09)
[2018-07-31] MEDS ORDERED: DEMADEX 2020 MG/1 TA PO (08:09)
== END 2018-07-31 07:45 | disposition short-term general hospital (02) | DRG 292 ==
PROVIDERS: Family Medicine; Hospitalist; Nurse Practitioner Family; Physical Medicine & Rehabilitation
DX: I50.33 Acute on chronic diastolic (congestive) heart failure (principal); I42.9 Cardiomyopathy, unspecified; I13.0 Hypertensive heart and chronic kidney disease with heart failure and stage 1 through stage 4 chronic kidney disease, or unspecified chronic kidney disease; N18.3 Chronic kidney disease, stage 3 (moderate); R53.81 Other malaise; N28.89 Other specified disorders of kidney and ureter; R40.0 Somnolence; M19.90 Unspecified osteoarthritis, unspecified site; R41.0 Disorientation, unspecified; F01.50 Vascular dementia, unspecified severity, without behavioral disturbance, psychotic disturbance, mood disturbance, and anxiety; M79.7 Fibromyalgia; Z90.49 Acquired absence of other specified parts of digestive tract; Z91.81 History of falling; Z79.899 Other long term (current) drug therapy; Z88.1 Allergy status to other antibiotic agents; Z88.2 Allergy status to sulfonamides
CPT/HCPCS: 10112

== ENCOUNTER 2018-07-31 08:40 | Inpatient (IN) | payer OTHER ==
[~2018-07-31] VITALS: Ht 162.6 cm; Wt 68.9 kg
[2018-07-31 08:00] VITALS: BP 164/71
[~2018-07-31 08:40] MED LIST changes: +ALBUTEROL2.5 MG/0.5 INH; +CARVEDILOL25 MG PO; +DEMADEX 2020 MG/1 TA PO; +TYLENOL EXTRA500 MG PO
[2018-07-31 11:15] VITALS: BP 127/59
[2018-07-31 13:54] LABS: HEMATOCRIT 29.9 % (37.0-47.0); MCH 29.3 pg (26.0-34.0); MCHC 33.3 g/dL (28.0-37.0); MCV 88.1 fL (80.0-100.0); RBC 3.39 mil/uL (4.20-5.00); RDW 14.7 % (10.5-14.5); WBC 9.4 thou/uL (4.0-11.0)
[2018-07-31 14:09] LABS: ALBUMIN 2.5 g/dL (3.4-5.0); CALCIUM 8.6 mg/dL (8.5-10.1); CREATININE 2.1 mg/dL (0.6-1.0); POTASSIUM 4.6 mmol/L (3.5-5.1); TOTAL BILIRUBIN 0.5 mg/dL (<0.1-1.0); TOTAL PROTEIN 6.4 g/dL (6.4-8.2)
[2018-07-31 14:35] LABS: BE(vivo) 2.8 mmol/L (-2 to +3); HCO3 26.8 mmol/L (22.0-26.0); PCO2 38.9 mmHg (35.0-45.0); PO2 80.2 mmHg (80.0-100.0); pH 7.456 (7.360-7.450); sO2 96.4 % (92.0-98.0)
[2018-07-31 15:45] VITALS: BP 119/49
[2018-07-31 19:14] VITALS: BP 133/60
[2018-07-31 23:37] VITALS: BP 133/54
[2018-08-01 04:08] VITALS: BP 146/62
[2018-08-01 07:25] VITALS: BP 155/76
[2018-08-01 09:13] LABS: HEMATOCRIT 29.9 % (37.0-47.0); MCH 29.3 pg (26.0-34.0); MCHC 33.4 g/dL (28.0-37.0); MCV 87.6 fL (80.0-100.0); RBC 3.41 mil/uL (4.20-5.00); RDW 14.5 % (10.5-14.5); WBC 7.4 thou/uL (4.0-11.0)
[2018-08-01 09:24] LABS: POTASSIUM 4.1 mmol/L (3.5-5.1)
[2018-08-01 11:15] VITALS: BP 108/64
[2018-08-01 11:40] VITALS: BP 124/50
[2018-08-01 15:30] VITALS: BP 150/80
[2018-08-01 20:08] VITALS: BP 170/73
[2018-08-02 04:01] VITALS: BP 165/91
[2018-08-02 09:34] VITALS: BP 183/92
[2018-08-02] MEDS ORDERED: AMLODIPINE BESYL5 M1 PO (10:32)
[2018-08-02] MEDS ORDERED: COREG6.25 MG PO (10:32)
[2018-08-02] MEDS ORDERED: LEVAQUIN 500 M500 M2 PO (10:33)
[2018-08-02 11:44] VITALS: BP 172/86
== END 2018-08-02 12:18 | DRG 314 ==
LOC: 2N 08:40 → ENTRNSPT 08-02 12:10 → EDTRNSPTSTS 08-02 12:11 → 2N 08-02 12:18
PROVIDERS: Family Medicine
DX: I95.9 Hypotension, unspecified (principal); J18.9 Pneumonia, unspecified organism; I50.23 Acute on chronic systolic (congestive) heart failure; I13.0 Hypertensive heart and chronic kidney disease with heart failure and stage 1 through stage 4 chronic kidney disease, or unspecified chronic kidney disease; J44.9 Chronic obstructive pulmonary disease, unspecified; D63.8 Anemia in other chronic diseases classified elsewhere; M19.90 Unspecified osteoarthritis, unspecified site; N18.3 Chronic kidney disease, stage 3 (moderate); M79.7 Fibromyalgia; Z79.82 Long term (current) use of aspirin; Z79.899 Other long term (current) drug therapy; Z88.1 Allergy status to other antibiotic agents; Z88.2 Allergy status to sulfonamides
CPT/HCPCS: 10081

== ENCOUNTER 2018-08-01 18:20 | Inpatient (IN) | payer OTHER ==
[~2018-08-01] VITALS: Ht 162.6 cm; Wt 75.3 kg
--- NOTE | ~2018-08-01 | HC ---
[facility] [place] [address] [place] [address] CONSULTATION Name: CHARLES DEL CASTILLO Room #: 513-P [facility] IN M.R.#: [id number] Admission: 08/02/18 Attend Phys: Jonathan Cordova MD Discharge: 08/13/18 Date of : 32 Report #: [id number] THIS REPORT FOR: //name// CC: Jonathan Mullins DATE OF SERVICE: 08/06/2018 NEUROBEHAVIORAL STATUS EXAM: ATTENDING PHYSICIAN: Jonathan Cordova MD. SPECIMEN PROCESSOR: Bro Gutierrez, PhD. CLINICAL PRESENTATION: The patient is an 88-year-old female admitted to the rehab unit at [facility] for comprehensive inpatient rehabilitation program to improve functional mobility, activities of daily living and self-care and mental status secondary to mental status changes. She was initially an inpatient on the rehab unit when she was readmitted for an acute in-hospital stay because of altered mental status. Altered mental status was hypotensive in nature and resolved to the extent she was able to return for further rehabiliation. Her diagnoses include medical complexity and generalized debility, pneumonia, previous acute mental status changes, congestive heart failure, acute on chronic, COPD, chronic kidney disease and hypertension. A complete description of her medical condition and history can be found in her medical record. Neuropsychological consultation was requested to provide assistance in the assessment of cognitive and emotional status and then to provide my recommendations. Prior to this recent deterioration in her condition, she was living independently in her own home. As noted during her previous assessment, she has had a series of falls with each fall requiring a longer period of recovery. 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 She lives alone and she has 3 children who all live outside the [place] area. TECHNIQUES UTILIZED: Clinical interview, review of medical records, staff consultation and behavioral observation, mini mental status exam 2 standard version, verbal fluency (category) and clock drawing. EXAMINATION FINDINGS: The patient was alert and oriented during this most recent assessment. She was more alert in comparison to the previous evaluation on 07/30/2018. However, she lacks insight into the extent of cognitive deficits that she is experiencing. She does not report subjective anxiety or [facility] [address] [place] [address] CONSULTATION Name: ABUNDIOCHARLES ANNA Room #: 513-P [facility] IN ..#: [id number] Admission: 08/02/18 Attend Phys: Jonathan Cordova MD Discharge: 08/13/18 Date of : 32 Report #: [id number] depression. The patient also indicates that her memory is within normal limits. Her performance on the MMSE 2 brief version was extremely low with a raw score of 8 of 16. She was 3 of 3 for initial registration, 2 of 5 for orientation to time, 3 of [address] and 0 of 3 for immediate recall of 3 items after a brief time delay and distraction. Her performance in comparison to the previous evaluation last week shows an improvement in orientation to time. However, deficits are severe in regard to immediate recall and inconsistent orientation to time. Her performance on the MMSE 2 standard version was extremely low with a raw score of 17, which is a T score of 13. However, her performance improved in comparison to the evaluation on 07/30/2018. Performance improvement was noted in sustained concentration and the ability to copy a geometric design. However, perseveration was still noted with deficits that while improving, are still moderate to severe. Category fluency assessment revealed a T score of 33, which is a percentile rank of 4 and in the mild to moderate range of impairment, also showing an improvement in comparison to her previous evaluation of last week. The patient's delirium appears to have resolved. Underlying neurocognitive dysfunction is still noted. Also, contributing may be medication with sedating features. DIAGNOSTIC IMPRESSION: Major neurocognitive disorder (dementia), likely multifactorial with Alzheimer type features without behavior disorder, likely moderate to severe. RECOMMENDATIONS: The patient will require assistance in the management of medication, finances and nutrition. A more thorough neuropsych assessment may be of value to clarify the severity of the dementia. However, her delirium appears to have resolved, but underlying neurocognitive deficits remain. The patient will have difficulty in the initiation of action along with planning and problem solving. At least assisted living will be necessary depending on the extent of support that can be provided. Thank you very much for allowing me to provide the consultation on this patient. <ELECTRONICALLY SIGNED> By: Bro Gutierrez, PhD 08/13/18 [id number] Bro Gutierrez, PhD /nt
--- NOTE | ~2018-08-01 | D ---
[facility] [address] DISCHARGE SUMMARY Name: CHARLES DEL CASTILLO Room #: 513-P [facility] IN M.R.#: [id number] Admission: 08/02/18 Attend Phys: Jonathan Cordova MD Discharge: 08/13/18 Date of : 32 Report #: [id number] THIS REPORT FOR: //name// CC: Jonathan Mullins DATE OF SERVICE: 08/13/2018 SUMMARY The patient was an 88-year-old white female who was originally admitted to the inpatient rehabilitation pham on 07/26/2018. She was admitted with an acute exacerbation of congestive heart failure, medical complexity with generalized debilitation, nonischemic cardiomyopathy, troponin elevation in an indeterminate range, acute renal insufficiency with exacerbation with diuresis, hypertension, and possible pneumonia. The patient was on the inpatient rehab pham and being discharged on 07/31/2018 when she was noted to have worsening of her condition with O2 sats in the 80s on 2 liters. There was concern for worsening exacerbation of her congestive heart failure and she was transferred off the acute inpatient rehab pham. She was felt to be stable for transfer back to the acute inpatient rehab pham after an interrupted stay and returned on 08/02/2018. She was noted to have medical complexity with generalized debilitation, pneumonia, along with the congestive heart failure, acute on chronic obstructive pulmonary disease, chronic kidney disease, and hypertension. While in the rehabilitation pham, she was followed medically by Dr. Mullins and the hospitalist service. She was monitored regarding her renal insufficiency and pneumonia was noted to be clinically improving. COPD was the same. Blood pressures were stable. Working in therapies with transfers and min assist. Gait was 75 feet front-wheeled walker, contact guard assistance. She was varying between mod to max assist for lower body dressing. Decision was made for her to go to a halfway facility, as it was not felt that she would be able to return back to the home setting. On 08/13/2018 at 4:50, a code blue note indicates the patient had been normal just before 4:00 a.m. Around 4:40, she was noted to be unresponsive, pulseless, and apneic. CPR was initiated. Initial cardiac rhythm was asystole. She was given epinephrine every 3 minutes per ACLS protocol, calcium bicarbonate were given. She remained in asystole with each rhythm check and the code was terminated at 5:10 and time of called. Pupils fixed and dilated. DIAGNOSES 1. Cardiac arrest with asystole. 2. Nonischemic cardiomyopathy. 3. Congestive heart failure. 4. Renal insufficiency. 5. Pneumonia. [address] [address] DISCHARGE SUMMARY Name: CHARLES DEL CASTILLO Room #: 513-P DIS IN M.R.#: [id number] Admission: 08/02/18 Attend Phys: Jonathan Cordova MD Discharge: 08/13/18 Date of : 32 Report #: [id number] 6. Chronic obstructive pulmonary disease. 7. Hypertension. By: [id number] Jonathan Cordova MD /PMT
--- NOTE | ~2018-08-01 | PLAN ---
[facility] [place] [address] REHAB UNIT PLAN OF CARE Name: CHARLES DEL CASTILLO Room #: 513-P ADM IN M.R.#: [id number] Admission: 08/02/18 Attend Phys: Jonathan Cordova MD Discharge: Date of : 32 Report #: [id number] THIS REPORT FOR: //name// CC: Jonathan Cookal Mullins DATE OF SERVICE: 08/02/2018 PROGRESS NOTE/INTERRUPTED STAY NOTE SUBJECTIVE: The patient is being readmitted back for acute in-hospital inpatient rehabilitation. She has been treated for mental status changes with hypotension, COPD, pneumonia, acute on chronic. Her acute mental status was thought to likely be hypotensive induced and has resolved. Continues treatment for her pneumonia and CHF. She does have the medical complexity with generalized debilitation. She has now been readmitted as she is doing better medically and is felt to have the tolerance to again work with the rehabilitation therapy program. No specific complaints today. OBJECTIVE: VITAL SIGNS: Last recorded temperature was 100.8, pulse 75, respirations 14, blood pressure 177/79. GENERAL: She is pleasant, alert, some delay in her processing. CHEST: Some decreased breath sounds diffusely. CARDIOVASCULAR: Sounded regular rate and rhythm. ABDOMEN: Bowel sounds positive, nontender. GENITOURINARY AND RECTAL: Deferred. EXTREMITIES: Functional range of motion of the upper and lower extremity strength is grade 4- to 3+/5. NEUROLOGIC: Tone appeared to be intact. She has been working in therapies and yesterday was able to transfer with min assist and ambulated short distance min assist with a front-wheeled walker. ASSESSMENT: 1. Medical complexity with generalized debilitation. 2. Pneumonia. 3. Previous acute mental status changes, likely hypotensive induced, resolved. 4. Congestive heart failure, acute on chronic. 5. Chronic obstructive pulmonary disease. 6. Chronic kidney disease. 7. Hypertension. PLAN: The patient is readmitted for acute in-hospital inpatient rehabilitation. We will have the interdisciplinary acute inpatient rehab therapy team. [address] [address] REHAB UNIT PLAN OF CARE Name: CHARLES DEL CASTILLO Room #: 513-P [facility] IN .R.#: [id number] Admission: 08/02/18 Attend Phys: Jonathan Cordova MD Discharge: Date of : 32 Report #: [id number] Continue to work with her on improving her overall independence with the hopes of returning back to her home setting. By: [id number] Jonathan Cordova MD /nt
[2018-08-02] MEDS ORDERED: COREG6.25 MG PO (10:32)
[2018-08-02] MEDS ORDERED: AMLODIPINE BESYL5 M1 PO (10:32)
[2018-08-02] MEDS ORDERED: LEVAQUIN 500 M500 M2 PO (10:33)
[2018-08-02 12:41] VITALS: BP 177/79
[2018-08-02 19:35] VITALS: BP 143/66
[2018-08-03 06:26] LABS: MCH 29.3 pg (26.0-34.0); MCHC 33.5 g/dL (28.0-37.0); MCV 87.4 fL (80.0-100.0); RBC 3.43 mil/uL (4.20-5.00); RDW 14.6 % (10.5-14.5)
[2018-08-03 06:37] LABS: CALCIUM 8.6 mg/dL (8.5-10.1); CREATININE 2.3 mg/dL (0.6-1.0)
[2018-08-03 08:00] VITALS: BP 167/64
[2018-08-03 16:02] VITALS: BP 151/72
[2018-08-03 20:08] VITALS: BP 119/54
[2018-08-04 08:30] VITALS: BP 147/96
[2018-08-04 14:45] VITALS: BP 136/58
[2018-08-04 19:40] VITALS: BP 148/63
[2018-08-05 07:35] VITALS: BP 151/77
[2018-08-05 16:48] VITALS: BP 164/71
[2018-08-05 19:50] VITALS: BP 128/68
[2018-08-06 08:00] VITALS: BP 152/77
[2018-08-06 17:00] VITALS: BP 161/74
[2018-08-06 19:30] VITALS: BP 136/72
[2018-08-07 04:14] LABS: CALCIUM 7.8 mg/dL (8.5-10.1); CREATININE 2.8 mg/dL (0.6-1.0); POTASSIUM 4.3 mmol/L (3.5-5.1)
[2018-08-07 09:16] VITALS: BP 176/85
[2018-08-07 10:14] VITALS: BP 147/55
[2018-08-07 19:35] VITALS: BP 137/60
[2018-08-08 05:44] LABS: ABSOLUTE NEUTROPHILS 6.3 thou/uL (1.4-8.2); BASOPHILS 0.5 % (0.0-2.0); EOSINOPHILS 2.9 % (0.0-3.0); HEMATOCRIT 29.1 % (37.0-47.0); HEMOGLOBIN 9.9 gm/dL (12.0-15.0); LYMPHOCYTES 9.9 % (24.0-44.0); MCH 29.4 pg (26.0-34.0); MCV 86.5 fL (80.0-100.0); MONOCYTES 5.7 % (1.0-8.0); PLATELET COUNT 117 thou/uL (150-400); RBC 3.37 mil/uL (4.20-5.00); RDW 14.2 % (10.5-14.5); WBC 7.8 thou/uL (4.0-11.0)
[2018-08-08 05:51] LABS: CALCIUM 8.9 mg/dL (8.5-10.1); CREATININE 2.9 mg/dL (0.6-1.0); POTASSIUM 4.2 mmol/L (3.5-5.1)
[2018-08-08 08:19] VITALS: BP 138/66
[2018-08-08 13:11] LABS: BE(vivo) 5.6 mmol/L (-2 to +3); HCO3 30.2 mmol/L (22.0-26.0); PCO2 44.7 mmHg (35.0-45.0); PO2 66.5 mmHg (80.0-100.0); pH 7.448 (7.360-7.450); sO2 93.9 % (92.0-98.0)
[2018-08-08 18:54] LABS: URINE BILIRUBIN NEGATIVE (Negative); URINE BLOOD 2+ (Negative); URINE CLARITY CLEAR; URINE COLOR YELLOW; URINE GLUCOSE-RANDOM* NEGATIVE (Negative); URINE KETONES NEGATIVE (Negative); URINE LEUKOCYTES-REFLEX NEGATIVE (Negative); URINE NITRITE-REFLEX NEGATIVE (Negative); URINE PROTEIN (DIPSTICK) 1+ (Negative); URINE UROBILINOGEN 0.2 E.U./dl (0.2-1.0)
[2018-08-08 19:05] LABS: SQUAMOUS 4-10 Moderate /LPF (0-3); URINE WBC-REFLEX 0-5 Rare /HPF (0-5)
[2018-08-08 19:06] LABS: BACTERIA-REFLEX 1-9 Few /HPF (None Seen); CASTS None Seen /LPF (None Seen); CRYSTALS None Seen /LPF (None Seen); URINE RBC 3-10 Few /HPF (0-2)
[2018-08-08 19:55] VITALS: BP 115/68
[2018-08-09 08:10] VITALS: BP 186/88
[2018-08-09 15:29] LABS: ALBUMIN 2.4 g/dL (3.4-5.0); CREATININE 2.9 mg/dL (0.6-1.0); POTASSIUM 4.8 mmol/L (3.5-5.1); TOTAL BILIRUBIN 0.5 mg/dL (<0.1-1.0)
[2018-08-09 16:06] LABS: HEMATOCRIT 25.9 % (37.0-47.0); HEMOGLOBIN 8.7 gm/dL (12.0-15.0); MCH 29.3 pg (26.0-34.0); MCHC 33.6 g/dL (28.0-37.0); MCV 87.4 fL (80.0-100.0); RBC 2.96 mil/uL (4.20-5.00); RDW 14.9 % (10.5-14.5)
[2018-08-09 16:35] LABS: BE(vivo) 6.1 mmol/L (-2 to +3); HCO3 30.3 mmol/L (22.0-26.0); PCO2 42.2 mmHg (35.0-45.0); PO2 69.4 mmHg (80.0-100.0); pH 7.474 (7.360-7.450); sO2 94.9 % (92.0-98.0)
[2018-08-09 20:02] VITALS: BP 141/61
[2018-08-10 06:18] LABS: CALCIUM 8.5 mg/dL (8.5-10.1); CREATININE 2.8 mg/dL (0.6-1.0); POTASSIUM 5.1 mmol/L (3.5-5.1)
[2018-08-10 15:45] VITALS: BP 147/75
[2018-08-10 20:05] VITALS: BP 150/56
[2018-08-11 05:57] LABS: CALCIUM 8.8 mg/dL (8.5-10.1); CREATININE 2.8 mg/dL (0.6-1.0); POTASSIUM 4.5 mmol/L (3.5-5.1)
[2018-08-11 08:40] VITALS: BP 145/75
[2018-08-11 20:08] VITALS: BP 155/65
[2018-08-12 08:08] VITALS: BP 144/68
[2018-08-12 19:49] VITALS: BP 154/74
== END 2018-08-13 05:10 | DRG 947 ==
PROVIDERS: Family Medicine; Nurse Practitioner Family; Physical Medicine & Rehabilitation
PROC: 5A12012 Performance of Cardiac Output, Single, Manual (ICD-10-PCS; principal; 2018-08-13)
DX: R53.81 Other malaise (principal); J18.9 Pneumonia, unspecified organism; I13.0 Hypertensive heart and chronic kidney disease with heart failure and stage 1 through stage 4 chronic kidney disease, or unspecified chronic kidney disease; I42.9 Cardiomyopathy, unspecified; I50.9 Heart failure, unspecified; J44.9 Chronic obstructive pulmonary disease, unspecified; N18.9 Chronic kidney disease, unspecified; M19.90 Unspecified osteoarthritis, unspecified site; D63.8 Anemia in other chronic diseases classified elsewhere; G30.9 Alzheimer's disease, unspecified; F02.80 Dementia in other diseases classified elsewhere, unspecified severity, without behavioral disturbance, psychotic disturbance, mood disturbance, and anxiety; I46.9 Cardiac arrest, cause unspecified; K59.00 Constipation, unspecified; Z79.899 Other long term (current) drug therapy
CPT/HCPCS: 10112